=== PATIENT | female | born 1990 | race Caucasian/White ===

== ENCOUNTER 2020-07-16 11:15 | Emergency (ER) | payer OTHER, SELFPAY ==
[2020-07-16 11:26] VITALS: BP 135/65; PULSE 75; RESP 17; TEMP 36.4; O2SAT 100; BMI 21.0
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
--- NOTE | 2020-07-16 12:05 | XR_ITS ---
EXAMINATION: XR CERVICAL SPINE CLINICAL INFORMATION: Neck pain. COMPARISON: None TECHNIQUE: 3 views of the cervical spine were obtained. FINDINGS: There is mild straightening of cervical lordosis. The vertebral heights, alignment and disc heights are normal. No visible acute fracture, dislocation or subluxation seen. No lytic process. XR/XR cervical spine 2V IMPRESSION: Unremarkable cervical spine exam except for mild straightening of cervical lordosis.
== END 2020-07-16 13:08 | disposition home or self-care (01) ==
PROVIDERS: Emergency Provider Emergency Medicine Emergency Medical Services; PCP Internal Medicine
DX: S16.1XXA Strain of muscle, fascia and tendon at neck level, initial encounter (principal); M54.2 Cervicalgia; V49.50XA Passenger injured in collision with unspecified motor vehicles in traffic accident, initial encounter; Y93.9 Activity, unspecified; Y92.410 Unspecified street and highway as the place of occurrence of the external cause; Y99.9 Unspecified external cause status
CPT/HCPCS: 72040; 99283

== ENCOUNTER 2021-03-02 13:29 | Outpatient (REF) | payer OTHER, SELFPAY ==
[2021-03-03 15:47] LABS: Rubella IgG Antibody 5.57 Index; Rubeola IgG (Measles) >300.00 AU/mL
== END 2021-03-02 13:30 | disposition home or self-care (01) ==
LOC: HO.LAB 13:29
PROVIDERS: PCP Internal Medicine; Visit Provider Internal Medicine
DX: Z01.84 Encounter for antibody response examination (principal); Z11.7 Encounter for testing for latent tuberculosis infection; F33.41 Major depressive disorder, recurrent, in partial remission
CPT/HCPCS: 36415; 86481; 86735; 86762; 86765; 86787

== ENCOUNTER 2021-12-27 12:17 | Emergency (ER) | payer OTHER, SELFPAY ==
[2021-12-27 13:15] VITALS: BP 125/73; PULSE 72; RESP 16; TEMP 36.2; O2SAT 100; BMI 21.9
[2021-12-27 13:44] LABS: MANUAL DIFF FLAG NO
[2021-12-27 13:48] LABS: Basophils Percent Auto 0.2 % (0-2); Eosinophils Absolute Auto 0.1 X10*3/uL (0.0-0.4); Hematocrit 38.7 % (37.0-47.0); Hemoglobin 12.6 g/dl (12.0-16.0); Imm Gran Abs Auto 0.01 X10*3/uL (0.00-0.03); Imm Gran Pct Auto 0.2 % (0.0-0.4); Lymphocytes Absolute Auto 1.3 X10*3/uL (1.2-4.9); Mean Corpuscular HGB Conc 32.6 g/dl (31.0-35.0); Mean Corpuscular Hemoglobin 27.8 pg (27.0-33.0); Mean Corpuscular Volume 85.2 fL (80.0-98.0); Mean Platelet Volume 10.7 fL (9.4-12.3); Monocytes Absolute Auto 0.5 X10*3/uL (0.1-1.2); Monocytes Percent Auto 9.3 % (2-11); Neutrophils Absolute Auto 3.1 x10*3/uL (2.0-8.3); Neutrophils Percent Auto 63.3 % (45-73); Platelet Count 214 X10*3/uL (160-400); Red Blood Count 4.54 X10*6/uL (4.20-5.50); Red Cell Distribution Width 12.4 % (11.0-16.0); White Blood Count 4.9 X10*3/uL (4.8-10.8)
[2021-12-27 13:54] LABS: Appearance Urine HAZY; Color Urine YELLOW; Glucose Urine UA NEG (NEG); Leukocyte Esterase Urine NEG (NEG); Nitrite Urine NEG (NEG); Urine Blood NEG (NEG); Urine Ketones 15 MG/DL (NEG); Urine Protein NEG (NEG-TRACE)
[2021-12-27 13:55] LABS: UPreg QC Valid YES; Urine Pregnancy NEGATIVE (NEGATIVE)
[2021-12-27 14:26] LABS: Alanine Aminotransferase 9 U/L (0-31); Albumin Level 4.5 g/dL (3.5-5.0); Alkaline Phosphatase 82 U/L (39-117); Anion Gap 12 (12-20); Aspartate Amino Transferase 15 U/L (5-31); Bilirubin Total 0.7 mg/dL (0.0-1.0); Blood Urea Nitrogen 10 mg/dL (9-16); Calcium 9.4 mg/dL (8.4-10.2); Carbon Dioxide 23 mmol/L (22-29); Chloride 105 mmol/L (96-108); Creatinine Clr Calc Pharmacy 94.3; Estimated Glomerular Filt Rate > 60; Glucose Random 80 mg/dL (60-115); Sodium 136 mmol/L (135-145); Total Protein 7.4 g/dL (6.5-8.0)
[2021-12-27 20:24] VITALS: BP 115/60; PULSE 78; RESP 17; O2SAT 100
--- NOTE | 2021-12-27 20:26 | ED.ABDPAIN ---
HPI - Abdominal Pain General Chief Complaint: Abdominal Pain Stated Complaint: abd pains Time Seen by Provider: 12/27/21 20:22 Source: patient Mode of arrival: ambulatory Limitations: no limitations History of Present Illness HPI narrative: 31-year-old female with no known medical issues presents to the emergency department with complaints of epigastric abdominal pain X2 days. Tells me that the pain started after eating spicy food. She reports a similar episode last month. She tells me the pain is a intermittent burning sensation w/o radiation, when asked to rate the pain she states 10/10. Unable to tell me what makes this pain worse other than eating spicy foods nothing seems to make this pain better when it occurs. She also tells me that she frequently drinks cranberry juice and she gets similar symptoms when she drinks this. She tells me at times when she drinks cranberry juice she feels like something sour is going upper throat and burning her throat. Patient states that she is feeling this slightly better than he was when she arrived. She has not tried any medications for this pain. Denies fevers, chills, chest pain, shortness of breath, nausea, vomiting. Doesnt think shes . MD elicited complaint: abdominal pain Pertinent past history: none Onset (ago): day(s) (2) Severity: moderate Radiation: none Migration to: no migration Exacerbating factors: nothing Relieving factors: nothing Associated symptoms: denies other symptoms Related Data Previous Rx's Medication Instructions Recorded cyclobenzaprine 10 mg tablet 10 mg PO TID #10 tabs 07/16/20 ibuprofen 600 mg tablet 600 mg PO Q8H PRN pain #20 tabs 07/16/20 omeprazole 10 mg capsule,delayed 10 mg PO DAILY #30 caps 12/27/21 release Allergies Allergy/AdvReac Type Severity Reaction Status Date / Time amoxicillin Allergy Hives Verified 07/16/20 11:26 terbinafine Allergy Rash Verified 07/16/20 11:26 Review of Systems Review of Systems Constitutional : No Weight loss, No Fever, No Chills, No Fatigue, No Malaise ENT/Mouth : No sore throat, No Rhinorrhea Eyes: No Eye Pain, No Swelling, No Redness Cardiovascular : No Chest Pain, No SOB, No Dyspnea on Exertion, No Orthopnea, No Edema, No Palpitations Respiratory : No Cough, No Sputum, No Wheezing Gastrointestinal : No Nausea, No Vomiting, No Diarrhea, No Constipation, + abdominal Pain, No Hematochezia, No Melena Genitourinary : No Dysuria, No Urinary Frequency, No Hematuria, Musculoskeletal : No joint pain, No Myalgias, No Joint Swelling Skin : No Skin Lesions, No rash Neuro : No Weakness, No Numbness, No Dizziness, No Headache Psych : No Anxiety/Panic, No Depression All other systems reviewed and are negative Yes all other systems are reviewed and are negative [facility] Past Medical History Attestation statement: The following information was validated with the patient. Source: old records reviewed and nursing notes reviewed Medical History No known health problems Social History Social History Advance Directives: No Advance Directives Information Provided: No Physical Exam ED Vital Signs: Vital Signs - 24 hr 12/27/21 13:15 12/27/21 20:24 Temperature 97.2 F Pulse Rate 72 78 Respiratory Rate 16 17 Blood Pressure 125/73 115/60 Pulse Oximetry 100 100 Oxygen Delivery Method Room Air Room Air BMI result Body Mass Index 21.9 VSS Appearance: Alert.? Oriented X3.? No acute distress.? Head: Normocephalic, atraumatic, no step-offs or deformities Eyes: Pupils equal, round and reactive to light.? ENT: Pharynx normal.? Neck: Normal inspection.? Neck supple.? CVS: Normal heart rate and rhythm.? Pulses normal.? Respiratory: No respiratory distress.? Breath sounds normal.? Abdomen: Soft and Nontender. Negative murphys, mcburney sign, rosving, ? Skin: Skin warm and dry.? Normal skin color.? Normal skin turgor.? Extremities: No lower extremity edema.? No calf ttp. 5/5 strength to bilateral upper and lower extremities Neuro: Oriented X 3.? No motor deficit.? No sensory deficit. CN 2-12 intact Course Reevaluation(s) Reevaluation #1: Patient's CBC within normal limits. Chemistry within normal limits. Normal lipase. I suspect this is gastritis. Urine clean. Will do a p.o. challenge at this time. Time: 21:40 Reevaluation #2: Patient tolerated p.o. challenge. Feeling better after medication. Likely gastritis. Advised her to return with new or worsening symptoms. Gave her follow-up with GI. At this time patient will be discharged home with strict return precautions I have been outlined on her discharge. She will also be started on omeprazole daily. Time: 22:28 MDM - Abdominal Pain MDM Narrative Medical decision making narrative: 2026 31 yo f presents w/ epigastric abd pain / burning worse with spicy and acidic foods X2 days PE benign. Unlikey apendicits, pancreatitis, cholecystitis, acute abdomen, diverticulitis. Likely gastritis or gastric ulcer. Plan- basic labs, urine, , will give patient a GI cocktail. Medical Records Attestation: I reviewed the patient's medical records. Lab Data Attestation: I reviewed the patient's lab results. Result diagrams: 12/27/21 13:38 12/27/21 13:38 Labs: Lab Results 12/27/21 12/27/21 12/27/21 Range/Units 13:30 13:30 13:38 WBC 4.9 (4.8-10.8) X10*3/uL RBC 4.54 (4.20-5.50) X10*6/uL Hgb 12.6 (12.0-16.0) g/dl Hct 38.7 (37.0-47.0) % MCV 85.2 (80.0-98.0) fL MCH 27.8 (27.0-33.0) pg MCHC 32.6 (31.0-35.0) g/dl RDW 12.4 (11.0-16.0) % Plt Count 214 (160-400) X10*3/uL MPV 10.7 (9.4-12.3) fL Immature Gran % (Auto) 0.2 (0.0-0.4) % Neut % (Auto) 63.3 (45-73) % Lymph % (Auto) 26.0 (20-40) % Trego % (Auto) 9.3 (2-11) % Eos % (Auto) 1.0 (0-4) % Baso % (Auto) 0.2 (0-2) % Lymph # (Auto) 1.3 (1.2-4.9) X10*3/uL Trego # (Auto) 0.5 (0.1-1.2) X10*3/uL Eos # (Auto) 0.1 (0.0-0.4) X10*3/uL Baso # (Auto) 0.0 (0.0-0.2) X10*3/uL Abs Immat Gran (auto) 0.01 (0.00-0.03) X10*3/uL Absolute Neuts (auto) 3.1 (2.0-8.3) x10*3/uL Absolute Nucleated RBC 0.000 (0.0-0.012) X10*3/uL Nucleated RBC % (auto) 0.0 (0.0-0.2) /100WBC Sodium (135-145) mmol/L Potassium (3.3-5.1) mmol/L Chloride (96-108) mmol/L Carbon Dioxide (22-29) mmol/L Anion Gap (12-20) BUN (9-16) mg/dL Creatinine (0.5-1.4) mg/dL Estim Creat Clear Calc Estimated GFR Random Glucose (60-115) mg/dL Calcium (8.4-10.2) mg/dL Total Bilirubin (0.0-1.0) mg/dL AST (5-31) U/L ALT (0-31) U/L Alkaline Phosphatase (39-117) U/L Total Protein (6.5-8.0) g/dL Albumin (3.5-5.0) g/dL Lipase (8-78) U/L Urine Color YELLOW Urine Appearance HAZY Urine pH 6.0 (5.0-8.0) Ur Specific Hastings 1.020 (1.005-1.025) Urine Protein NEG (NEG-TRACE) MG/DL Urine Glucose (UA) NEG (NEG) MG/DL Urine Ketones 15 (NEG) MG/DL Urine Blood NEG (NEG) Urine Nitrite NEG (NEG) Ur Leukocyte Esterase NEG (NEG) Urine Test NEGATIVE (NEGATIVE) 12/27/21 12/27/21 Range/Units 13:38 20:50 WBC (4.8-10.8) X10*3/uL RBC (4.20-5.50) X10*6/uL Hgb (12.0-16.0) g/dl Hct (37.0-47.0) % MCV (80.0-98.0) fL MCH (27.0-33.0) pg MCHC (31.0-35.0) g/dl RDW (11.0-16.0) % Plt Count (160-400) X10*3/uL MPV (9.4-12.3) fL Immature Gran % (Auto) (0.0-0.4) % Neut % (Auto) (45-73) % Lymph % (Auto) (20-40) % Trego % (Auto) (2-11) % Eos % (Auto) (0-4) % Baso % (Auto) (0-2) % Lymph # (Auto) (1.2-4.9) X10*3/uL Trego # (Auto) (0.1-1.2) X10*3/uL Eos # (Auto) (0.0-0.4) X10*3/uL Baso # (Auto) (0.0-0.2) X10*3/uL Abs Immat Gran (auto) (0.00-0.03) X10*3/uL Absolute Neuts (auto) (2.0-8.3) x10*3/uL Absolute Nucleated RBC (0.0-0.012) X10*3/uL Nucleated RBC % (auto) (0.0-0.2) /100WBC Sodium 136 (135-145) mmol/L Potassium 4.0 (3.3-5.1) mmol/L Chloride 105 (96-108) mmol/L Carbon Dioxide 23 (22-29) mmol/L Anion Gap 12 (12-20) BUN 10 (9-16) mg/dL Creatinine 0.69 (0.5-1.4) mg/dL Estim Creat Clear Calc 94.3 Estimated GFR > 60 Random Glucose 80 (60-115) mg/dL Calcium 9.4 (8.4-10.2) mg/dL Total Bilirubin 0.7 (0.0-1.0) mg/dL AST 15 (5-31) U/L ALT 9 (0-31) U/L Alkaline Phosphatase 82 (39-117) U/L Total Protein 7.4 (6.5-8.0) g/dL Albumin 4.5 (3.5-5.0) g/dL Lipase 24 (8-78) U/L Urine Color Urine Appearance Urine pH (5.0-8.0) Ur Specific Hastings (1.005-1.025) Urine Protein (NEG-TRACE) MG/DL Urine Glucose (UA) (NEG) MG/DL Urine Ketones (NEG) MG/DL Urine Blood (NEG) Urine Nitrite (NEG) Ur Leukocyte Esterase (NEG) Urine Test (NEGATIVE) Critical Care Time Critical Care Time Critical Care Time: No Discharge Plan Discharge Clinical Impression: Abdominal pain, Gastritis Patient Disposition: Home, Self-Care Instructions: Gastritis (ED), Diet for Stomach Ulcers and Gastritis (ED), Abdominal Pain (ED) Additional Instructions: Take your medications as prescribed. If you were prescribed antibiotics today, it is important that you take your medication to their entirety, do not skip any doses, do not finish them early. Follow-up with your primary care provider this week. Return to the emergency department with new or worsening symptoms. Such as fevers, chills, chest pain, shortness of breath, nausea, vomiting, dizziness, headache, vision changes, lethargy In case of emergency call 911 Please follow a bland diet, avoid greasy, spicy, acidic foods as this can make her pain worse I am going to send you on a medication called omeprazole, please take this daily in the morning. I have also attached information for a personal financial representative/stomach doctor, please call them for follow-up. Prescriptions: New omeprazole 10 mg capsule,delayed release(DR/EC) 10 mg PO DAILY Qty: 30 0RF No Action cyclobenzaprine 10 mg tablet 10 mg PO TID Qty: 10 0RF ibuprofen 600 mg tablet 600 mg PO Q8H PRN (Reason: pain) Qty: 20 0RF Referrals: Yuni Luna MD [Primary Care Provider] - 3 days Norman Quick [Physician] - 2 days Stand Alone Forms: Work/School Release
[2021-12-27 21:13] LABS: Lipase 24 U/L (8-78)
[2021-12-27] MEDS: Ondansetron ODT 4 MG TAB.RAPDIS TRANSLINGU (21:17)
[2021-12-27] MEDS: Magnesium Hydrox/Alum Hydrox 30 ML ORAL.SUSP PO (21:18)
[2021-12-27] MEDS: PHENobarb/Hyoscy/Atropine/Scop 10 ML ELIXIR PO (21:18)
== END 2021-12-27 23:00 | disposition home or self-care (01) ==
PROVIDERS: Physician Assistant; Emergency Provider Internal Medicine; PCP Internal Medicine
DX: K29.70 Gastritis, unspecified, without bleeding (principal); R10.13 Epigastric pain; Z79.899 Other long term (current) drug therapy
CPT/HCPCS: 36415; 80053; 81003; 81025; 83690; 85025; 99283; 99284

== ENCOUNTER 2022-04-08 09:52 | Emergency (ER) | payer OTHER, SELFPAY ==
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
[2022-04-08 10:54] VITALS: BP 129/71; PULSE 89; RESP 16; O2SAT 99; BMI 22.8
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
== END 2022-04-08 15:30 | disposition home or self-care (01) ==
PROVIDERS: Emergency Provider Emergency Medicine Emergency Medical Services; PCP Internal Medicine
DX: S13.4XXA Sprain of ligaments of cervical spine, initial encounter (principal); M54.2 Cervicalgia; R51.9 Headache, unspecified; V43.52XA Car driver injured in collision with other type car in traffic accident, initial encounter; Y93.9 Activity, unspecified; Y92.410 Unspecified street and highway as the place of occurrence of the external cause; Y99.9 Unspecified external cause status; Z79.899 Other long term (current) drug therapy
CPT/HCPCS: 70450; 72125; 99282; 99284

== ENCOUNTER 2022-09-19 22:44 | Emergency (ER) | payer OTHER, SELFPAY ==
[2022-09-19 22:48] VITALS: BP 131/72; PULSE 88; RESP 16; TEMP 36.7; O2SAT 98; BMI 21.9
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
[2022-09-19] MEDS: Ondansetron ODT 4 MG TAB.RAPDIS SUBLINGUAL (23:35)
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
--- OUTSIDE RECORDS SUMMARY | 2022-09-19 23:51 | XMS_ITS | Continuity of Care Document ---
:1990 Author Organization [facility] Address [address] [place] [id number]- Care Team Providers Name Role Phone Yuni Luna MD Primary Care Physician Encounter [facility] [place] ACCT R [id number] Date(s): 06/23/22 - 06/30/22 [facility] [address] [place] [id number]- Encounter Diagnosis Concussion (Discharge Diagnosis) - 06/23/22 Major depressive disorder with single episode, in full remission (Discharge Diagnosis) - 06/23/22 Neck pain (Discharge Diagnosis) - 06/23/22 Attending Physician: Brent Reed MD Referring Physician: Not on Staff, Referring MD Allergies, Adverse Reactions, Alerts No Known Allergies Medications No Known Medications Problem List Condition Confirmation Course Effective Dates Status Health Stat us Informant Major depressive Confirmed Active disorder with single episode, in full remission Diagnosis Diagnosis Type Effective [facility] Clinical Infor [facility] Status Service Concussion Discharge 06/23/22 Diagnosis Major depressive Discharge 06/23/22 disorder with Diagnosis single episode, in full remission Neck pain Discharge 06/23/22 Diagnosis Vital Signs Most recent to oldest [Reference Range]: 1 Height 158 cm (06/23/22 11:54 AM) Weight 56.2 kg (06/23/22 11:54 AM) Oxygen Saturation [94-100 %] 99 % (06/23/22 11:54 AM) Pulse Rate [55-90 bpm] 74 bpm (06/23/22 11:54 AM) Body Mass Index [18.5-24.99 kg/m2] 22.51 kg/m2 (06/23/22 11:54 AM) Blood Pressure [90-138/55-84 mm Hg] 115/74 mm Hg (06/23/22 11:54 AM) Blood pressure sites Arm, left (06/23/22 11:54 AM) Weight Obtained Via Bed scale (06/23/22 11:54 AM) Patient Care team information Care Team PersonnelName: Cheryl MCKAY, Yuni Hilton Position: [facility] Outreach Member Role: PCP Address: Address: [address] [place] [address] [address] Yuni Luna [place] [address]
--- OUTSIDE RECORDS SUMMARY | 2022-09-19 23:51 | XMS_ITS | Continuity of Care Document ---
:1990 Author Organization [facility] Address [address] [facility] [address] [place] [address]- Care Team Providers Name Role Phone Yuni Luna MD Primary Care Physician Encounter [facility] [place] ACCT R [id number] Date(s): 06/23/22 - 08/27/22 [facility] [address] [place] [address] [address] [place] [address]- Attending Physician: Brent Reed MD Referring Physician: Yuni Luna MD Allergies, Adverse Reactions, Alerts No Known Allergies Problem List Condition Confirmation Course Effective Dates Status Health Stat us Informant Major depressive Confirmed Active disorder with single episode, in full remission Patient Care team information Care Team PersonnelName: Yuni Luna MD Position: [facility] Outreach Member Role: PCP Address: Address: [address] Yuni [place], [place] [address]
--- OUTSIDE RECORDS SUMMARY | 2022-09-19 23:51 | XMS_ITS | Continuity of Care Document ---
:1990 Author Organization [facility] Address [address] [place] [address]- Care Team Providers Name Role Phone Yuni Luna MD Primary Care Physician Encounter [facility] Date(s): 06/27/22 - 07/27/22 [facility] [address] [place], [place] [address] Allergies, Adverse Reactions, Alerts No Known Allergies Problem List Condition Confirmation Course Effective Dates Status Health Stat us Informant Major depressive Confirmed Active disorder with single episode, in full remission Patient Care team information Care Team PersonnelName: Yuni Luna MD Position: [facility] Outreach Member Role: PCP Address: Address: [address] Yuni Luna [place], [place] [address]
--- OUTSIDE RECORDS SUMMARY | 2022-09-19 23:51 | XMS_ITS | Continuity of Care Document ---
:1990 Author Organization [facility] Address [address] [facility] [address] [place] [address]- Care Team Providers Name Role Phone Not on Staff, PCP Primary Care Physician Unavailable Encounter [facility] Date(s): 05/10/22 - 06/09/22 [facility] [address] [place] [id number] Patient Care team information Care Team PersonnelName: Not on Staff, PCP Position: S Physician (General Medicine) Member Role: PCP
--- OUTSIDE RECORDS SUMMARY | 2022-09-19 23:51 | XMS_ITS | Continuity of Care Document ---
:1990 Author Organization [facility] Address [address] [facility] [address] [place] [address]- Care Team Providers Name Role Phone Yuni Luna MD Primary Care Physician Encounter [facility] [place] Date(s): 07/28/22 - 08/27/22 [facility] [address] [place] [address] [address] [place] [address]- Attending Physician: Alyssa Huffman Admitting Physician: AdmAlyssa apple Referring Physician: Admtr, Ar8 Allergies, Adverse Reactions, Alerts No Known Allergies Problem List Condition Confirmation Course Effective Dates Status Health Stat us Informant Major depressive Confirmed Active disorder with single episode, in full remission Patient Care team information Care Team PersonnelName: Yuni Luna MD Position: [facility] Outreach Member Role: PCP Address: Address: [address] [place] [address] [address] Yuni Luna MD [place], [place] [address]
[2022-09-20] MEDS: Cyclobenzaprine HCl 10 MG TABLET PO (00:07)
[2022-09-20] MEDS: Diphth,Pertus(ACell),Tet Adult 0.5 ML SYRINGE IM (00:07)
[2022-09-20] MEDS: Acetaminophen 325 MG TABLET 650 MG PO (00:07)
== END 2022-09-20 00:16 | disposition home or self-care (01) ==
PROVIDERS: Emergency Provider Emergency Medicine Emergency Medical Services; PCP Internal Medicine
DX: S06.0X0A Concussion without loss of consciousness, initial encounter (principal); S80.212A Abrasion, left knee, initial encounter; S50.811A Abrasion of right forearm, initial encounter; S50.11XA Contusion of right forearm, initial encounter; Y04.0XXA Assault by unarmed brawl or fight, initial encounter; Y93.9 Activity, unspecified; Y92.9 Unspecified place or not applicable; Y99.9 Unspecified external cause status; M54.2 Cervicalgia; Z23 Encounter for immunization
CPT/HCPCS: 90471; 90715; 99283; 99284